=== PATIENT | female | born 1940 | race African-American/Black ===

== ENCOUNTER 2021-03-31 06:51 | Inpatient (IN) | payer MEDICARE ==
[~2021-03-31] VITALS: Ht 157.5 cm; Wt 106.1 kg
[~2021-03-31 06:51] MED LIST: ALENDRONATE SOD10 MG PO; AMLODIPINE BESY10 MG PO; COMBIGAN EYE DRO5 ML OP; ELIQUIS5 MG PO; FUROSEMIDE40 MG PO; HYDROCODON-ACE1 EAC9 PO; METOPROLOL TART50 MG PO; PANTOPRAZOLE SO40 MG PO; VITAMIN D PO; ZESTRIL10 MG PO
[2021-03-31] MEDS ORDERED: ROPIVACAINE 246.25 MG, EPINEPHRINE HCL 1:1000 1ML 0.5 MG, CLONIDINE HCL 0.08 MG, KETORO... INJ ONE ×5 (08:00)
[2021-03-31] MEDS ORDERED: Vancomycin IV 1,000 MG ONE (08:14)
[2021-03-31] MEDS ORDERED: TRANEXAMIC ACID 1,000 MG/10 ML ML ONE (08:14)
[2021-03-31] MEDS ORDERED: SODIUM CHLORIDE 0.9% 500ML 500 ML ONE (08:14)
[2021-03-31] MEDS ORDERED: SODIUM CHLORIDE 0.9% 50ML 100 ML ONE (08:16)
[2021-03-31] MEDS ORDERED: DEXAMETHASONE SOD PHOS 10 MG/1 ML VIAL ONE (08:43)
[2021-03-31] MEDS ORDERED: GABAPENTIN 300 MG CAP ONE (08:43)
[2021-03-31] MEDS ORDERED: CELECOXIB 200 MG CAP ONE (08:43)
[2021-03-31] MEDS ORDERED: LIDOCAINE 2%/ EPINEPHRINE 20ML MDV ONE (09:11)
[2021-03-31] MEDS ORDERED: ONDANSETRON HCL INJ 2MG/ML 2ML 2 MG/ML VIAL IV PRN (12:00)
[2021-03-31] MEDS ORDERED: KETOROLAC TROMETHAMINE 30 MG/ML VIAL IV PRN (12:00)
[2021-03-31] MEDS: SODIUM CHLORIDE 0.9% 1000ML 1,000 ML IV SCH ×2 (12:00→22:36)
[2021-03-31] MEDS ORDERED: ZOLPIDEM TARTRATE 5 MG TAB PO PRN (12:00)
[2021-03-31] MEDS ORDERED: DIPHENHYDRAMINE HCL INJ 50 MG/ML VIAL IV PRN (12:00)
[2021-03-31] MEDS ORDERED: ACETAMINOPHEN 650 MG SUPP PR PRN (12:00)
[2021-03-31] MEDS ORDERED: ROPIVACAINE 0.5% 5 MG/ML 30 ML SDV ONE (12:54)
[2021-03-31] MEDS ORDERED: METOCLOPRAMIDE HCL 10 MG/2ML VIAL ONE (12:59)
[2021-03-31] MEDS ORDERED: SEVOFLURANE INHAL SOLN 250 ML PEN BTL ONE (12:59)
[2021-03-31] MEDS ORDERED: LIDOCAINE HCL 2% LOCAL INJ 5 ML SDV VIAL INJ ONE (12:59)
[2021-03-31] MEDS ORDERED: POVIDONE IODINE 0.05% 0.05 % ML PO ONE (12:59)
[2021-03-31] MEDS ORDERED: ONDANSETRON HCL INJ 2MG/ML 2ML 2 MG/ML VIAL ONE (12:59)
[2021-03-31] MEDS ORDERED: PROPOFOL IV EMULSION 10 MG/ML 20 ML VIAL ONE (12:59)
[2021-03-31 13:02] VITALS: BP 126/85
[2021-03-31] MEDS ORDERED: FENTANYL CITRATE/PF 100MCG/2 ML INJ ONE (13:06)
[2021-03-31] MEDS ORDERED: MIDAZOLAM HCL 2 MG/2 ML VIAL ONE (13:06)
[2021-03-31 13:10] VITALS: BP 126/85
[2021-03-31] MEDS ORDERED: Cefazolin 1 GM in SODIUM CHLORIDE 0.9% 50ML 50 ML IV SCH (14:00)
[2021-03-31] MEDS: HYDROCODONE/APAP 5MG-325MG TAB PO PRN (14:44)
[2021-03-31] MEDS: DOCUSATE SODIUM 100 MG CAP PO PRN (14:49)
[2021-03-31 16:04] VITALS: BP 110/73
[2021-03-31] MEDS: ASPIRIN 325 MG TAB PO SCH (16:27)
[2021-03-31] MEDS: CELECOXIB 100 MG CAP PO SCH (16:27)
[2021-03-31] MEDS: HYDROCODONE/APAP 7.5MG-325MG 1 EA TAB PO PRN (18:36)
[2021-03-31 19:54] VITALS: BP 102/69
[2021-03-31 20:51] VITALS: BP 102/69
[2021-03-31] MEDS: Cefazolin 1 GM in SODIUM CHLORIDE 0.9% 50ML 50 ML IV SCH (21:54)
[2021-04-01] VITALS (7 sets, daily range): BP systolic 104–125; BP diastolic 59–70
[2021-04-01] MEDS: Cefazolin 1 GM in SODIUM CHLORIDE 0.9% 50ML 50 ML IV SCH ×2 (05:34→15:22)
[2021-04-01] MEDS: DOCUSATE SODIUM 100 MG CAP PO PRN (05:54)
[2021-04-01 05:55] LABS: HEMATOCRIT 30.4 % (34.2-44.1); HEMOGLOBIN 9.6 g/dL (12.0-16.0)
[2021-04-01] MEDS: HYDROCODONE/APAP 5MG-325MG TAB PO PRN (06:15)
[2021-04-01] MEDS: ASPIRIN 325 MG TAB PO SCH (08:47)
[2021-04-01] MEDS: CELECOXIB 100 MG CAP PO SCH (08:47)
[2021-04-01] MEDS ORDERED: METOPROLOL TARTRATE 50 MG TAB PO SCH (09:00)
[2021-04-01] MEDS ORDERED: PANTOPRAZOLE SOD 40 MG TABEC PO SCH (09:00)
[2021-04-01] MEDS ORDERED: AMLODIPINE BESYLATE 10 MG TAB PO SCH (09:00)
[2021-04-01] MEDS: HYDROCODONE/APAP 7.5MG-325MG 1 EA TAB PO PRN (10:27)
[2021-04-01] MEDS ORDERED: ACETAMINOPHEN 1000 MG/100 ML IV PRN (12:00)
[2021-04-01] MEDS ORDERED: ONDANSETRON HCL 4 MG ORAL DISINTEGRATING TAB PO PRN (14:00)
== END 2021-04-01 16:00 | disposition home health service (06) | DRG 467 ==
LOC: OR 06:51 → PACU V 11:46 → MED/SURG 13:04
PROVIDERS: ADMIT Specialist; ATTEND Specialist
PROC: 0SRC0J9 Replacement of Right Knee Joint with Synthetic Substitute, Cemented, Open Approach (ICD-10-PCS; 2021-03-31)
PROC: 0SPC0JZ Removal of Synthetic Substitute from Right Knee Joint, Open Approach (ICD-10-PCS; principal; 2021-03-31 09:00)
DX: T84.022A Instability of internal right knee prosthesis, initial encounter (principal); Z68.41 Body mass index [BMI] 40.0-44.9, adult; M17.11 Unilateral primary osteoarthritis, right knee; I11.0 Hypertensive heart disease with heart failure; I50.9 Heart failure, unspecified; Z96.653 Presence of artificial knee joint, bilateral; E66.01 Morbid (severe) obesity due to excess calories; D64.9 Anemia, unspecified; K21.9 Gastro-esophageal reflux disease without esophagitis; Z20.822 Contact with and (suspected) exposure to COVID-19
CPT/HCPCS: 36415; 71046; 85014; 85018; 86850; 86900; 86920; 87071; 87075; 87205; 93005; 97139; C1713; C1776; J0171; J0690; J1100; J1885; J2001; J2250; J2405; J2765; J2795; J3010; J3370; J7030; J7040; U0002